=== PATIENT | male | born 1975 | race Hispanic/Latino ===

== ENCOUNTER 2018-01-13 17:21 | Emergency (ER) | payer SELFPAY ==
[~2018-01-13] VITALS: Ht 165.1 cm; Wt 72.6 kg
[2018-01-13] MEDS ORDERED: FLUORESCEIN SOD(OPTH) 1 MG STRP OP ONE (17:30)
[2018-01-13] MEDS ORDERED: TETRACAINE HCL 0.5% OPTH SOLN 4 ML BTL OP ONE (17:30)
[2018-01-13] MEDS ORDERED: SODIUM CHLORIDE 0.9% 500ML 500 ML ONE (18:10)
[2018-01-13] MEDS ORDERED: SODIUM CHLORIDE 0.9% 500ML 500 ML IV ONE (18:15)
[2018-01-13 18:51] VITALS: BP 144/78
== END 2018-01-13 18:50 | disposition home or self-care (01) ==
LOC: ER 17:21
DX: S05.01XA Injury of conjunctiva and corneal abrasion without foreign body, right eye, initial encounter (principal); H11.31 Conjunctival hemorrhage, right eye; W22.8XXA Striking against or struck by other objects, initial encounter; Y99.0 Civilian activity done for income or pay
CPT/HCPCS: 99283; J7040